=== PATIENT | male | born 1980 | race Caucasian/White ===

== ENCOUNTER 2020-04-01 17:56 | Emergency (ER) | payer SELFPAY ==
[~2020-04-01] VITALS: Ht 177.8 cm; Wt 86.2 kg
== END 2020-04-01 18:33 | disposition home or self-care (01) ==
LOC: ER 18:06
DX: R11.2 Nausea with vomiting, unspecified (principal); R19.7 Diarrhea, unspecified
CPT/HCPCS: 99283